=== PATIENT | female | born 1985 | race Caucasian/White ===

== ENCOUNTER 2017-04-16 17:24 | Inpatient (IN) | payer OTHER ==
[~2017-04-16] VITALS: Ht 144.8 cm; Wt 61.7 kg
[2017-04-16 17:58] VITALS: BP 134/84
[2017-04-16 19:18] LABS: EOSINOPHIL (%) 0.6 % (0-5); EOSINOPHIL COUNT 0.1 K/uL (0-0.3); HEMATOCRIT 40.5 % (36.0-46.0); IMMATURE GRANULOCYTE (%) 0.6 % (0.0-0.7); IMMATURE GRANULOCYTE COUNT 0.1 K/uL; INSTRUMENT ABS NEUTROPHIL CT 12.6 K/uL; LYMPHOCYTE COUNT 2.3 K/uL (1.0-2.8); MCH 27.3 PG (29.0-34.0); MCHC 32.6 G/DL (30.0-36.0); MCV 83.9 FL (83-99); MONOCYTE (%) 6.4 % (3-12); NEUTROPHIL (%) 78.1 % (45-76); NEUTROPHIL COUNT 12.6 K/uL (1.8-6.4); PLATELET COUNT 312 K/uL (156-360); RBC DIS.WIDTH-CV 14.4 % (11.8-14.6); RBC DIS.WIDTH-SD 42.9 % (39-53); RED BLOOD COUNT 4.83 M/uL (3.80-5.20); WHITE BLOOD COUNT 16.1 K/uL (4.1-10.2)
[2017-04-16 19:49] VITALS: BP 121/82
[2017-04-16 20:44] VITALS: BP 104/72
[2017-04-16 20:59] VITALS: BP 129/83
[2017-04-16 21:15] VITALS: BP 125/82
[2017-04-16 21:24] VITALS: BP 127/91
[2017-04-17] MEDS ORDERED: IBUPROFEN800 MG PO (01:25)
[2017-04-18 07:25] VITALS: BP 112/71
== END 2017-04-18 15:13 | disposition home or self-care (01) | DRG 775 ==
LOC: LDRP-OP 17:24 → 2WEST 17:27 → LDRP-OP 05-23 14:24
PROVIDERS: Obstetrics & Gynecology
PROC: 10E0XZZ Delivery of Products of Conception, External Approach (ICD-10-PCS; principal; 2017-04-16)
DX: O69.1XX0 Labor and delivery complicated by cord around neck, with compression, not applicable or unspecified (principal); Z3A.39 39 weeks gestation of pregnancy; Z37.0 Single live birth
CPT/HCPCS: 85025